=== PATIENT | female | born 1985 | race Caucasian/White ===

== ENCOUNTER 2018-09-18 09:31 | Emergency (ER) | payer MEDICAID ==
[~2018-09-18] VITALS: Ht 157.5 cm; Wt 76.7 kg
[2018-09-18 09:43] VITALS: Ht 157.5 cm; Wt 76.7 kg
[2018-09-18 10:39] LABS: BASOPHIL % 0.4 % (0-2); PLATELET COUNT 191 x10^3mcL (130-400)
[2018-09-18 10:53] LABS: RED CELL DISTRIBUTION WIDTH 14.6 % (11.5-14.5)
[2018-09-18 11:02] LABS: CALCIUM 8.5 mg/dL (8.5-10.1); CARBON DIOXIDE 27.6 mmol/L (21-32); CHLORIDE SERUM 104 mmol/L (98-107); CREATININE SERUM 0.7 mg/dL (0.6-1.0); GFR1 > 60 mL/min; GLUCOSE SERUM 109 mg/dL (74-106); POTASSIUM SERUM 4.2 mmol/L (3.5-5.1); SODIUM SERUM 139 mmol/L (136-145)
[2018-09-18 11:03] LABS: UA SPECIFIC GRAVITY <=1.005 (1.005-1.035); microscopic required? YES; urine erythrocyte 3+ (NEGATIVE)
[2018-09-18 11:08] LABS: ALBUMIN 3.8 g/dL (3.4-5.0); ALKALINE PHOSPHATASE 94 U/L (46-116); ALT/SGPT 21 U/L (14-59); AST/SGOT 10 U/L (15-37); BILIRUBIN TOTAL 0.23 mg/dL (0.20-1.00); LIPASE 105 IU/L (73-393); TOTAL PROTEIN, SERUM 7.6 g/dL (6.4-8.2)
[2018-09-18 13:04] VITALS: BP 129/75
== END 2018-09-18 13:04 | disposition home or self-care (01) ==
LOC: ED 09:31
PROVIDERS: Emergency Medicine
DX: N39.0 Urinary tract infection, site not specified (principal); N76.0 Acute vaginitis; N93.8 Other specified abnormal uterine and vaginal bleeding
CPT/HCPCS: 36415; J1885